=== PATIENT | male | born 1955 | race Caucasian/White ===

== ENCOUNTER → 2016-10-16 | Outpatient (CLI) | payer OTHER ==
[~2016-10-16] MED LIST: ASPIRIN EC325 MG PO; COLACE100 MG PO; DESYREL100 MG PO; GLUCOPHAGE500 MG PO; LASIX20 MG PO; LASIX40 MG PO; NOHOMEMEDS; NORVASC5 MG PO; OXAYDO5 MG PO; PRAVASTATIN SOD40 MG PO; SENNA LAXATIVE25 MG PO; TOPROL XL25 MG PO; TYLENOL PM1 CAPLET PO
== END | disposition home or self-care (01) ==
LOC: CDC 12:55
DX: R00.1 Bradycardia, unspecified (principal); E11.9 Type 2 diabetes mellitus without complications; I10 Essential (primary) hypertension; Z79.899 Other long term (current) drug therapy
CPT/HCPCS: 93000

== ENCOUNTER → 2016-10-20 | Outpatient (CLI) | payer OTHER ==
[~2016-10-20] VITALS: Ht 170.2 cm; Wt 86.7 kg
[2016-10-20 09:31] LABS: POINT-OF-CARE METER ID UU13113694
[2016-10-20 15:12] LABS: POINT-OF-CARE METER ID UU13113819
== END | disposition home or self-care (01) ==
LOC: AMB 09:00
PROVIDERS: Internal Medicine
DX: Z12.11 Encounter for screening for malignant neoplasm of colon (principal); R12 Heartburn; K29.70 Gastritis, unspecified, without bleeding; K20.9 Esophagitis, unspecified; D12.2 Benign neoplasm of ascending colon; K62.1 Rectal polyp; E11.9 Type 2 diabetes mellitus without complications; I10 Essential (primary) hypertension; Z79.899 Other long term (current) drug therapy; Z79.82 Long term (current) use of aspirin
CPT/HCPCS: 82948; 88305; 88342 TC; J3010